=== PATIENT | female | born 2000 | race Caucasian/White ===

== ENCOUNTER → 2022-09-29 | Emergency (ER) | payer OTHER ==
[~2022-09-29] MED LIST: ACETAMINOPHEN 325 MG TABLET (FP) ONE; ACETAMINOPHEN 500 MG TABLET (FP) PO ONE; DEXAMETHASONE SOD PHOSPHATE 10 MG/1 ML VIAL ONE
[2022-09-29 06:28] VITALS: BP 125/84; PULSE 64; RESP 18; TEMP 97.6; BMI 27.3
== END | disposition home or self-care (01) ==
LOC: JER 06:24
DX: R51.9 Headache, unspecified (principal); V49.50XA Passenger injured in collision with unspecified motor vehicles in traffic accident, initial encounter
CPT/HCPCS: 93005; 93010; 99283-25